=== PATIENT | female | born 1985 | race Caucasian/White ===

== ENCOUNTER → 2024-05-23 09:12 | Outpatient (REF) | payer OTHER, SELFPAY | LOC: WDC 09:12 | PROVIDERS: ATTENDING PHYSICIAN Physician Assistant | DX: N63.10 Unspecified lump in the right breast, unspecified quadrant (principal) | CPT/HCPCS: 76642; 77062; 77066 ==

== ENCOUNTER → 2024-11-25 09:01 | Outpatient (REF) | payer OTHER, SELFPAY | LOC: WDC 09:01 | PROVIDERS: ATTENDING PHYSICIAN Student in an Organized Health Care Education/Training Program; FAMILY PHYSICIAN Nurse Practitioner | DX: N63.10 Unspecified lump in the right breast, unspecified quadrant (principal); N63.41 Unspecified lump in right breast, subareolar | CPT/HCPCS: 76642; 77061; 77065 ==

== ENCOUNTER → 2024-11-28 10:10 | Outpatient (REF) | payer OTHER, SELFPAY ==
--- NOTE | 2024-11-28 13:26 | OID.BR.INTR ---
[facility] Breast Navigator - Initial
- -
Date of Contact: 11/28/24
Met with patient. Patient given written information on navigator services available at [facility]. Will follow up as needed per protocol.
== END ==
LOC: WDC 10:10
PROVIDERS: ATTENDING PHYSICIAN Student in an Organized Health Care Education/Training Program; FAMILY PHYSICIAN Nurse Practitioner
DX: N63.41 Unspecified lump in right breast, subareolar (principal)
CPT/HCPCS: 19083; 88305; A4648

== ENCOUNTER → 2025-02-16 16:28 | Outpatient (REF) | payer OTHER, SELFPAY | LOC: MRI 3T 16:28 | PROVIDERS: ATTENDING PHYSICIAN Surgery; FAMILY PHYSICIAN Physician Assistant | DX: N63.41 Unspecified lump in right breast, subareolar (principal) | CPT/HCPCS: 77049; A9585 ==

== ENCOUNTER → 2025-02-27 14:47 | Outpatient (REF) | payer OTHER, SELFPAY | LOC: WDC 14:47 | PROVIDERS: ATTENDING PHYSICIAN Nurse Practitioner Adult Health; FAMILY PHYSICIAN Physician Assistant | DX: R92.8 Other abnormal and inconclusive findings on diagnostic imaging of breast (principal) | CPT/HCPCS: 76642 ==